=== PATIENT | male | born 1975 | race African-American/Black ===

== ENCOUNTER 2016-06-07 23:29 | Emergency (ER) | payer OTHER ==
[~2016-06-07] VITALS: Ht 170.2 cm; Wt 81.6 kg
[~2016-06-07 23:29] MED LIST: AMLO10TA4 PO
[2016-06-07 23:37] VITALS: BP 188/114
--- NOTE | 2016-06-08 00:07 | PHYS DOC ---
Past Medical History Past Medical History: No Pertinent History, Hypertension Past Surgical History: Other Additional Past Surgical Histo: "broken jaw surgery" Alcohol Use: Occasionally Drug Use: Marijuana, Phencyclidine Adult General Chief Complaint Chief Complaint: ALCOHOL INTOXICATION HPI HPI Patient is a 41 year old gentleman who presents to the ER today by EMS and police secondary to being found wandering around the street intoxicated. Patient denies any other past medical history. Patient has any history of hypertension diabetes liver longer kidney problems. Patient reports that he does not smoke but he does drink and denies any drug use. Patient has any nausea vomiting diarrhea chest pain short of breath abdominal pain. Patient denies any suicidal or homicidal ideation. Patient denies any cough cold runny nose. Patient has a dysuria frequency or urgency. Patient reports she's got no complaints. Patient reports he was drinking a significant amount of alcohol tonight and was walking around the streets when he was picked up by police. Patient is currently requesting to go home. Patient does not feel like he needs to be in the emergency department at this time. Patient's physical exam was significant for positive alcohol on breath. Patient is alert awake and oriented 3. Patient's cranial nerves were all intact. Patient is a completely nonfocal neurological exam at this time. Patient's heart lungs abdominal exams were all within normal limits. A/P: #1 alcohol intoxication. Patient's clinically and hemodynamically stable without any evidence of significant toxicity from alcohol. Patient is alert awake and oriented 3. I have discussed with the patient that he can get a ride home that we would allow him to be discharged from the ER safely. Patient has called his aunt who was on her way to pick him up. There is currently no indication for IV labs. Review of Systems Review of Systems Constitutional: Denies fever or chills [] Eyes: Denies change in visual acuity, redness, or eye pain [] HENT: Denies nasal congestion or sore throat [] Respiratory: Denies cough or shortness of breath [] Cardiovascular: No additional information not addressed in HPI [] GI: Denies abdominal pain, nausea, vomiting, bloody stools or diarrhea [] : Denies dysuria or hematuria [] Musculoskeletal: Denies back pain or joint pain [] Integument: Denies rash or skin lesions [] Neurologic: Denies headache, focal weakness or sensory changes [] Endocrine: Denies polyuria or polydipsia [] Allergies Allergies Allergies Coded Allergies Type Severity Reaction Last Updated Verified No Known Drug Allergies 04/03/13 No Physical Exam Physical Exam Constitutional: Well developed, well nourished, no acute distress, non-toxic appearance. [] HENT: Normocephalic, atraumatic, bilateral external ears normal, oropharynx moist, no oral exudates, nose normal. [] Eyes: PERRLA, EOMI, conjunctiva normal, no discharge. [] Neck: Normal range of motion, no tenderness, supple, no stridor. [] Cardiovascular:Heart rate regular rhythm, no murmur [] Lungs & Thorax: Bilateral breath sounds clear to auscultation [] Abdomen: Bowel sounds normal, soft, no tenderness, no masses, no pulsatile masses. [] Skin: Warm, dry, no erythema, no rash. [] Back: No tenderness, no CVA tenderness. [] Extremities: No tenderness, no cyanosis, no clubbing, ROM intact, no edema. [] Neurologic: Alert and oriented X 3, normal motor function, normal sensory function, no focal deficits noted. [] Psychologic: Affect normal, judgement normal, mood normal. [] Current Patient Data Vital Signs Vital Signs Date Time Temp Pulse Resp B/P Pulse Ox O2 Delivery O2 Flow Rate FiO2 06/07/16 23:37 98.6 113 20 188/114 98 Room Air 98.6 EKG EKG [] Radiology/Procedures Radiology/Procedures [] Impressions: Patient's clinically hemodynamically stable for discharged home. After notifying the patient's aunt to assist with taking him home the police who have brought him here reports that he had multiple warrants and they have informed us that he will be discharged present. Course & Med Decision Making Course & Med Decision Making Pertinent Labs and Imaging studies reviewed. (See chart for details) [] See above. Dragon Disclaimer Dragon Disclaimer This electronic medical record was generated, in whole or in part, using a voice recognition dictation system. Departure Departure Impression: Primary Impression: Alcohol intoxication Disposition: 01 HOME, SELF-CARE Condition: IMPROVED Referrals: ESTER MAHARAJ MD (PCP) Patient Instructions: Alcohol Intoxication CATHI FIELDS MD Jun 08, 2016 00:07
== END 2016-06-08 00:19 | disposition home or self-care (01) ==
LOC: EEVIPCON 23:29 → ER 23:29
DX: F10.129 Alcohol abuse with intoxication, unspecified (principal); I10 Essential (primary) hypertension; F12.10 Cannabis abuse, uncomplicated; F16.10 Hallucinogen abuse, uncomplicated; E11.9 Type 2 diabetes mellitus without complications
CPT/HCPCS: 99283

== ENCOUNTER 2016-08-19 18:03 | Emergency (ER) | payer SELFPAY ==
[~2016-08-19] VITALS: Ht 170.2 cm; Wt 81.6 kg
[2016-08-19 18:03] VITALS: BP 214/115
== END 2016-08-19 18:31 | disposition left against medical advice (07) ==
LOC: ER 18:03
DX: F19.10 Other psychoactive substance abuse, uncomplicated (principal); F12.10 Cannabis abuse, uncomplicated; F16.10 Hallucinogen abuse, uncomplicated; F17.200 Nicotine dependence, unspecified, uncomplicated; Z53.21 Procedure and treatment not carried out due to patient leaving prior to being seen by health care provider

== ENCOUNTER 2016-12-22 20:47 | Emergency (ER) | payer SELFPAY ==
--- NOTE | 2016-12-22 21:45 | PHYS DOC ---
Past Medical History Past Medical History: Hypertension Past Surgical History: Other Additional Past Surgical Histo: "broken jaw surgery" Alcohol Use: Occasionally Drug Use: Marijuana, Phencyclidine Adult General Chief Complaint Chief Complaint: ALTERED MENTAL STATUS HPI HPI Patient is a 41 year old male who presents with 2 hour [employer] of using smoking PCP and having a bad trip; found wandering the streets, brought in by EMS after someone called the police. pt now calm and cooperative. denies ALLEN, CP, SOB. hx HTN but noncompliant w meds.[] Review of Systems Review of Systems Constitutional: Denies fever or chills [] Eyes: Denies change in visual acuity, redness, or eye pain [] HENT: Denies nasal congestion or sore throat [] Respiratory: Denies cough or shortness of breath [] Cardiovascular: No additional information not addressed in HPI [] GI: Denies abdominal pain, nausea, vomiting, bloody stools or diarrhea [] : Denies dysuria or hematuria [] Musculoskeletal: Denies back pain or joint pain [] Integument: Denies rash or skin lesions [] Neurologic: Denies headache, focal weakness or sensory changes [] Endocrine: Denies polyuria or polydipsia [] Current Medications Current Medications Current Medications Medications (Trade) Dose Ordered Sig/Nick Start Time Stop Time Status Last Admin Dose Admin Lorazepam (Ativan) 1 mg 1X ONCE 12/22/16 22:00 12/22/16 22:01 DC 12/22/16 22:14 1 MG Sodium Chloride 500 ml @ 500 mls/hr 1X ONCE 12/22/16 22:00 12/22/16 22:59 12/22/16 21:51 500 MLS/HR Allergies Allergies Allergies Coded Allergies Type Severity Reaction Last Updated Verified No Known Drug Allergies 04/03/13 No Physical Exam Physical Exam Constitutional: Well developed, well nourished, no acute distress, non-toxic appearance. [] HENT: Normocephalic, atraumatic, bilateral external ears normal, oropharynx moist, no oral exudates, nose normal. [] Eyes: PERRLA, EOMI, conjunctiva normal, no discharge. [] Neck: Normal range of motion, no tenderness, supple, no stridor. [] Cardiovascular:Heart rate tachy, reg rhythm, no murmur [] Lungs & Thorax: Bilateral breath sounds clear to auscultation [] Abdomen: Bowel sounds normal, soft, no tenderness, no masses, no pulsatile masses. [] Skin: Warm, dry, no erythema, no rash. [] Back: No tenderness, no CVA tenderness. [] Extremities: No tenderness, no cyanosis, no clubbing, ROM intact, no edema. superficial abrasion top of left shoulder no bony tenderness[] Neurologic: Alert and oriented X 3, normal motor function, normal sensory function, no focal deficits noted. [] Psychologic: Affect normal, judgement normal, mood normal. [] Current Patient Data Vital Signs Vital Signs Date Time Temp Pulse Resp B/P (MAP) Pulse Ox O2 Delivery O2 Flow Rate FiO2 12/22/16 20:47 98.6 104 20 196/117 (143) 99 Room Air 98.6 Lab Values Laboratory Tests Test 12/22/16 21:25 Glucose (Fingerstick) 132 mg/dL (70-99) H EKG EKG EKG sinus tach, rate 111 , no STEMI, qtc nml; my interp.[] Radiology/Procedures Radiology/Procedures [] Course & Med Decision Making Course & Med Decision Making Pertinent Labs and Imaging studies reviewed. (See chart for details) 2237: pt calm cooperative. able to ambulate without difficulty. pt refused ativan, fluids, or BP meds (understands risk of stroke and other problems related to poorly controlled HTN). pt understands need to stop drug use and follow up for HTN management. [] Dragon Disclaimer Dragon Disclaimer This electronic medical record was generated, in whole or in part, using a voice recognition dictation system. Departure Departure Impression: Primary Impression: PCP intoxication Additional Impression: Hypertension Disposition: HOME, SELF-CARE Condition: STABLE Referrals: Lydia MAHARAJ MD (PCP) Problem Qualifiers KEN REYNOSO MD Dec 22, 2016 21:45
[2016-12-22] MEDS ORDERED: IV NORMAL SALINE 500ML BAG 500 ML IV ONE (22:00)
[2016-12-22 22:35] VITALS: BP 191/110
--- NOTE | 2016-12-23 07:44 | EKG ---
[facility] [address] [place] [address] Test Date: 2016-12-22 Test Time: 20:55:19 Pat Name: LIYAH CASTRO Department: Room: Gender: M Quantitative Developer: : 1975 Requested By: KEN REYNOSO Order Number: [id number] Reading MD: Lucrecia Hope Measurements Intervals [place] Rate: 111 P: 41 TN: 146 QRS: 0 QRSD: 86 T: 1 QT: 320 QTc: 438 Interpretive Statements SINUS TACHYCARDIA LEFT ATRIAL ABNORMALITY LEFTWARD AXIS ABNORMAL ECG Electronically Signed On 12-25-2016 15:15:53 CDT by Lucrecia Hope
== END 2016-12-22 22:55 | disposition home or self-care (01) ==
LOC: ER 20:47
DX: F16.129 Hallucinogen abuse with intoxication, unspecified (principal); I10 Essential (primary) hypertension
CPT/HCPCS: 82962; 93005; 96361; 96374; 99285; J2060; J7040

== ENCOUNTER 2017-09-29 22:50 | Inpatient (IN) | payer SELFPAY ==
[2017-09-29 23:23] LABS: ADD MAN DIFF? NO
[2017-09-29] MEDS: IV NORMAL SALINE 1000ML BAG 1,000 ML IV (23:30)
[2017-09-29 23:34] LABS: BASO # 0.1 x10^3/uL (0.0-0.2); BASO % 1 % (0-3); EOS # 0.3 x10^3/uL (0.0-0.7); EOS % 4 % (0-3); HEMATOCRIT 48.9 % (39.0-53.0); HEMOGLOBIN 16.6 g/dL (13.0-17.5); LYMPH # 2.9 x10^3/uL (1.0-4.8); LYMPH % 37 % (24-48); MEAN CORPUSCULAR HEMOGLOBIN 31 pg (25-35); MEAN CORPUSCULAR HGB CONC 34 g/dL (31-37); MEAN CORPUSCULAR VOLUME 91 fL (79-100); MONO # 0.6 x10^3/uL (0.0-1.1); MONO % 8 % (0-9); NEUT # 3.8 x10^3uL (1.8-7.7); NEUT % 50 % (31-73); PLATELET COUNT 346 x10^3/uL (140-400); RED BLOOD COUNT 5.37 x10^6/uL (4.30-5.70); RED CELL DISTRIBUTION WIDTH 13.2 % (11.5-14.5); WHITE BLOOD COUNT 7.7 x10^3/uL (4.0-11.0)
[2017-09-29 23:35] LABS: PROTHROMBIN TIME PATIENT 12.7 SEC (11.7-14.0)
[2017-09-29 23:36] LABS: MAGNESIUM 2.4 mg/dL (1.8-2.4)
[2017-09-29 23:38] LABS: ANION GAP 21 (6-14); BLOOD UREA NITROGEN 20 mg/dL (8-26); BUN/CREATININE RATIO 10 (6-20); CALCIUM 10.2 mg/dL (8.5-10.1); CARBON DIOXIDE 20 mmol/L (21-32); CHLORIDE 102 mmol/L (98-107); GLUCOSE 203 mg/dL (70-99); POTASSIUM 3.9 mmol/L (3.5-5.1); SODIUM 143 mmol/L (136-145)
[2017-09-29 23:41] LABS: ACETAMIN < 2 mcg/ml (10-30); ETHANOL < 10 mg/dL (0-10); SALIC 4.7 mg/dL (2.8-20.0)
[2017-09-29 23:44] LABS: TROPONINI < 0.017 ng/mL (0.000-0.055)
[2017-09-29 23:44] LABS: ALBUMIN 4.7 g/dL (3.4-5.0); ALBUMIN/GLOBULIN RATIO 1.1 (1.0-1.7); ALK PHOS 91 U/L (46-116); ALT (SGPT) 42 U/L (16-63); AST (SGOT) 34 U/L (15-37); TOTAL BILIRUBIN 0.4 mg/dL (0.2-1.0); TOTAL PROTEIN 8.8 g/dL (6.4-8.2)
[2017-09-29 23:53] LABS: CKMB INDEX 0.9 % (0-4); CKMB MASS 3.1 ng/mL (0.0-3.6); CREATINE KINASE 341 U/L (39-308)
[2017-09-30 00:04] LABS: BILIRUBIN,URINE NEGATIVE (NEG); CLARITY,URINE CLEAR; COLOR,URINE YELLOW; GLUCOSE,URINE NEGATIVE (NEG); NITRITE,URINE NEGATIVE (NEG); PH,URINE 5.5; PROTEIN,URINE 30 mg/dL (NEG-TRACE)
[2017-09-30 00:13] LABS: LACTIC ACID 12.1 mmol/L (0.4-2.0)
[2017-09-30 00:14] LABS: BACTERIA,URINE 0 /HPF (0-FEW); HYALINE CASTS, URINE FEW /HPF; SQUAMOUS EPITHELIAL CELL,UR OCC /LPF
[2017-09-30 00:20] LABS: BARBITURATES NEG (NEG); BENZODIAZEPINES NEG (NEG); CANNABINOIDS NEG (NEG); COCAINE NEG (NEG); METHADONE NEG (NEG); OPIATES NEG (NEG); PHENCYCLIDINE POS (NEG)
[2017-09-30 00:21] LABS: AMPHETAMINE/METHAMPHETAMINE NEG (NEG); ETHANOL, URINE NEG (NEG)
[2017-09-30] MEDS: IV NORMAL SALINE 1000ML BAG 1,000 ML IV ×2 (00:28→01:25)
[2017-09-30] MEDS ORDERED: ONDANSETRON PF 4 MG/2 ML VIAL. IV (00:45)
== END 2017-09-30 05:05 | disposition left against medical advice (07) | DRG 897 ==
LOC: ER 09-30 04:02 → 6 SOUTH 09-30 02:30 → ER 22:50
DX: F16.920 Hallucinogen use, unspecified with intoxication, uncomplicated (principal); E87.2 Acidosis; H55.00 Unspecified nystagmus; N18.9 Chronic kidney disease, unspecified; F17.210 Nicotine dependence, cigarettes, uncomplicated; F12.90 Cannabis use, unspecified, uncomplicated; Z53.21 Procedure and treatment not carried out due to patient leaving prior to being seen by health care provider; I12.9 Hypertensive chronic kidney disease with stage 1 through stage 4 chronic kidney disease, or unspecified chronic kidney disease
CPT/HCPCS: 36415; 70450; 71045; 80053; 80307; 80329; 81001; 82553; 83605; 83735; 84484; 85025; 85610; 93005; 96361; 96374; 99285; 99285-25; G0480; G6039; J2060; J7030

== ENCOUNTER 2018-04-18 20:43 | Emergency (ER) | payer SELFPAY ==
[~2018-04-18] VITALS: Ht 170.2 cm; Wt 72.6 kg
[2018-04-18 22:30] VITALS: BP 199/114
--- NOTE | 2018-04-19 04:51 | PHYS DOC ---
Past Medical History Past Medical History: Hypertension, Other Additional Past Medical Histor: DRUG ABUSE/PCP Past Surgical History: Other Additional Past Surgical Histo: "broken jaw surgery" Alcohol Use: Occasionally Drug Use: Marijuana, Phencyclidine Adult General Chief Complaint Chief Complaint: DRUG ABUSE HPI HPI Patient is a 43 year old male presents the emergency room brought in by ambulance after being found walking around in the snow in the [facility] [place] He appeared to have some altered mental status he did admit to smoking a "wet" cigarette which his PCP Review of Systems Review of Systems limited by altered mental status. Current Medications Current Medications Current Medications Medications (Trade) Dose Ordered Sig/Nick Start Time Stop Time Status Last Admin Dose Admin Lorazepam (Ativan) 1 mg 1X ONCE 04/18/18 21:30 04/18/18 21:31 DC 04/18/18 21:05 1 MG Allergies Allergies Allergies Coded Allergies Type Severity Reaction Last Updated Verified No Known Drug Allergies 04/03/13 No Physical Exam Physical Exam Constitutional: Well developed, well nourished, mild distress, non-toxic appearance. [] HENT: Normocephalic, atraumatic, bilateral external ears normal, oropharynx moist, no oral exudates, nose normal. [] Eyes: pupils dilated EOMI, conjunctiva normal, no discharge. [] Neck: Normal range of motion, no tenderness, supple, no stridor. [] Cardiovascular:Heart rate regular rhythm, no murmur [] Lungs & Thorax: Bilateral breath sounds clear to auscultation [] Abdomen: Bowel sounds normal, soft, no tenderness, no masses, no pulsatile masses. [] Skin: Warm, dry, no erythema, no rash. [] Back: No tenderness, no CVA tenderness. [] Extremities: No tenderness, no cyanosis, no clubbing, ROM intact, no edema. [] Neurologic: Alert and oriented X 2, normal motor function, normal sensory function, no focal deficits noted. [] Psychologic: Affect normal, judgement normal, mood normal. [] Current Patient Data Vital Signs Vital Signs Date Time Temp Pulse Resp B/P (MAP) Pulse Ox O2 Delivery O2 Flow Rate FiO2 04/18/18 22:30 89 18 199/114 (142) 99 Room Air 04/18/18 20:43 98.0 98.0 EKG EKG [] Radiology/Procedures Radiology/Procedures [] Course & Med Decision Making Course & Med Decision Making Pertinent Labs and Imaging studies reviewed. (See chart for details) 43 yo m p/w ams likely secondry to pcp use. pt is calm overall in the er, mild agitation but redirectable verbally. given ativan with improvement. walks with steady gait after epriod of observation in the er bp likely related to stimulant use pt given cab voucher and was able to report a specific address at discharge. counseled on cessation of drug use.[] Dragon Disclaimer Dragon Disclaimer This electronic medical record was generated, in whole or in part, using a voice recognition dictation system. Departure Departure Impression: Primary Impression: Drug abuse Disposition: HOME, SELF-CARE Condition: STABLE Patient Instructions: Drug Abuse, FAQs CARIDAD GREENE MD Apr 19, 2018 04:51
== END 2018-04-18 22:25 | disposition home or self-care (01) ==
LOC: ER 20:43
DX: F16.20 Hallucinogen dependence, uncomplicated (principal); I10 Essential (primary) hypertension; R41.82 Altered mental status, unspecified
CPT/HCPCS: 96372; 99283; J2060

== ENCOUNTER 2018-04-21 20:15 | Observation (INO) | payer SELFPAY ==
[~2018-04-21] VITALS: Ht 170.2 cm; Wt 68.0 kg
[2018-04-21] MEDS ORDERED: HALOPERIDOL LACTATE 5 MG/ML VIAL. ONE (20:22)
[2018-04-21] MEDS ORDERED: ZIPRASIDONE IM 20 MG VIAL. IM ONE (20:33)
[2018-04-21 21:13] LABS: BASO % 1 % (0-3); EOS # 0.2 x10^3/uL (0.0-0.7); EOS % 4 % (0-3); HEMOGLOBIN 14.1 g/dL (13.0-17.5); LYMPH # 1.2 x10^3/uL (1.0-4.8); LYMPH % 26 % (24-48); MEAN CORPUSCULAR HEMOGLOBIN 30 pg (25-35); MEAN CORPUSCULAR HGB CONC 33 g/dL (31-37); MEAN CORPUSCULAR VOLUME 91 fL (79-100); MONO # 0.2 x10^3/uL (0.0-1.1); MONO % 5 % (0-9); NEUT % 64 % (31-73); PLATELET COUNT 294 x10^3/uL (140-400); RED BLOOD COUNT 4.64 x10^6/uL (4.30-5.70); RED CELL DISTRIBUTION WIDTH 12.6 % (11.5-14.5); WHITE BLOOD COUNT 4.7 x10^3/uL (4.0-11.0)
[2018-04-21 21:19] LABS: PROTHROMBIN TIME PATIENT 12.9 SEC (11.7-14.0)
[2018-04-21 21:23] LABS: CALCIUM 9.4 mg/dL (8.5-10.1); CREATININE 1.1 mg/dL (0.7-1.3); GFR 89.3; POTASSIUM 3.6 mmol/L (3.5-5.1)
[2018-04-21 21:24] LABS: BILIRUBIN,URINE NEGATIVE (NEG); CLARITY,URINE CLEAR; COLOR,URINE YELLOW; NITRITE,URINE NEGATIVE (NEG); PROTEIN,URINE 30 mg/dL (NEG-TRACE)
[2018-04-21 21:29] LABS: ALBUMIN 3.8 g/dL (3.4-5.0); DIRECT BILIRUBIN 0.1 mg/dL (0.0-0.2); MAGNESIUM 1.9 mg/dL (1.8-2.4); TOTAL BILIRUBIN 0.3 mg/dL (0.2-1.0); TOTAL PROTEIN 7.3 g/dL (6.4-8.2)
[2018-04-21 21:30] LABS: AMPHETAMINE/METHAMPHETAMINE NEG (NEG); BARBITURATES NEG (NEG); BENZODIAZEPINES NEG (NEG); CANNABINOIDS NEG (NEG); COCAINE NEG (NEG); METHADONE NEG (NEG); OPIATES NEG (NEG); PHENCYCLIDINE POS (NEG)
[2018-04-21 21:36] LABS: BACTERIA,URINE 0 /HPF (0-FEW); RBC,URINE OCC /HPF (0-2); SQUAMOUS EPITHELIAL CELL,UR FEW /LPF; WBC,URINE RARE /HPF (0-4)
[2018-04-21 21:37] LABS: HYALINE CASTS, URINE FEW /HPF
--- NOTE | 2018-04-21 23:24 | PHYS DOC ---
Past Medical History Past Medical History: Hypertension, Other Additional Past Medical Histor: DRUG ABUSE/PCP Past Surgical History: Other Additional Past Surgical Histo: "broken jaw surgery" Alcohol Use: Occasionally Drug Use: Marijuana, Phencyclidine Adult General Chief Complaint Chief Complaint: DRUG ABUSE HPI HPI Patient is a 43-year-old male who presents via EMS with reports of PCP intoxication. Patient was wandering the streets confused and reportedly had used wet. Additional history is limited as patient is clearly confused, intoxicated and unable to provide history. Review of Systems Review of Systems Constitutional: No reported fever[] Respiratory: No reported shortness of breath [] Cardiovascular: No additional information not addressed in HPI [] GI: No reported vomiting[] Neurologic: Positive confusion[] Unable to fully assess review of systems due to patient's mental state/ intoxication. Current Medications Current Medications Current Medications Medications (Trade) Dose Ordered Sig/Nick Start Time Stop Time Status Last Admin Dose Admin Haloperidol Lactate (Haldol Inj) 5 mg STK-MED ONCE 04/21/18 20:22 04/21/18 20:23 DC Lorazepam (Ativan) 2 mg STK-MED ONCE 04/21/18 20:22 04/21/18 20:23 DC Ziprasidone (Geodon Im) 20 mg STK-MED ONCE 04/21/18 20:33 04/21/18 20:34 DC Allergies Allergies Allergies Coded Allergies Type Severity Reaction Last Updated Verified No Known Drug Allergies 04/03/13 No Physical Exam Physical Exam Constitutional: Well developed, well nourished, obviously intoxicated. [] HENT: Normocephalic, atraumatic, bilateral external ears normal, oropharynx moist, no oral exudates, nose normal. [] Eyes: PERRLA, EOMI, conjunctiva normal, no discharge. [] Neck: Normal range of motion, no tenderness, supple, no stridor. [] Cardiovascular: Regular rate and rhythm[] Lungs & Thorax: Bilateral breath sounds clear to auscultation [] Abdomen: Bowel sounds normal, soft, no tenderness. [] Skin: Warm, dry, no erythema, no rash. [] Extremities: No tenderness, no cyanosis, no clubbing, ROM intact, no edema. [] Neurologic: Awake and alert, disoriented 3, no focal deficits noted. [] Current Patient Data Vital Signs Vital Signs Date Time Temp Pulse Resp B/P (MAP) Pulse Ox O2 Delivery O2 Flow Rate FiO2 04/21/18 20:15 98.1 126 20 148/84 (105) 98 Room Air 98.1 Lab Values Laboratory Tests Test 04/21/18 21:04 04/21/18 21:15 White Blood Count 4.7 x10^3/uL (4.0-11.0) Red Blood Count 4.64 x10^6/uL (4.30-5.70) Hemoglobin 14.1 g/dL (13.0-17.5) Hematocrit 42.0 % (39.0-53.0) Mean Corpuscular Volume 91 fL (79-100) Mean Corpuscular Hemoglobin 30 pg (25-35) Mean Corpuscular Hemoglobin Concent 33 g/dL (31-37) Red Cell Distribution Width 12.6 % (11.5-14.5) Platelet Count 294 x10^3/uL (140-400) Neutrophils (%) (Auto) 64 % (31-73) Lymphocytes (%) (Auto) 26 % (24-48) Monocytes (%) (Auto) 5 % (0-9) Eosinophils (%) (Auto) 4 % (0-3) H Basophils (%) (Auto) 1 % (0-3) Neutrophils # (Auto) 3.0 x10^3uL (1.8-7.7) Lymphocytes # (Auto) 1.2 x10^3/uL (1.0-4.8) Monocytes # (Auto) 0.2 x10^3/uL (0.0-1.1) Eosinophils # (Auto) 0.2 x10^3/uL (0.0-0.7) Basophils # (Auto) 0.0 x10^3/uL (0.0-0.2) Prothrombin Time 12.9 SEC (11.7-14.0) Prothrombin Time INR 1.0 (0.8-1.1) Sodium Level 144 mmol/L (136-145) Potassium Level 3.6 mmol/L (3.5-5.1) Chloride Level 104 mmol/L (98-107) Carbon Dioxide Level 25 mmol/L (21-32) Anion Gap 15 (6-14) H Blood Urea Nitrogen 10 mg/dL (8-26) Creatinine 1.1 mg/dL (0.7-1.3) Estimated GFR (Cockcroft-Gault) 89.3 Glucose Level 138 mg/dL (70-99) H Calcium Level 9.4 mg/dL (8.5-10.1) Magnesium Level 1.9 mg/dL (1.8-2.4) Total Bilirubin 0.3 mg/dL (0.2-1.0) Direct Bilirubin 0.1 mg/dL (0.0-0.2) Aspartate Amino Transferase (AST) 31 U/L (15-37) Alanine Aminotransferase (ALT) 38 U/L (16-63) Alkaline Phosphatase 87 U/L (46-116) Total Protein 7.3 g/dL (6.4-8.2) Albumin 3.8 g/dL (3.4-5.0) Ethyl Alcohol Level < 10 mg/dL (0-10) Urine Collection Type U cath Urine Color Yellow Urine Clarity Clear Urine pH 6.0 Urine Specific [place] 1.025 Urine Protein 30 mg/dL (NEG-TRACE) Urine Glucose (UA) Negative mg/dL (NEG) Urine Ketones (Stick) Negative mg/dL (NEG) Urine Blood Negative (NEG) Urine Nitrite Negative (NEG) Urine Bilirubin Negative (NEG) Urine Urobilinogen Dipstick 1.0 mg/dL (0.2 mg/dL) Urine Leukocyte Esterase Negative (NEG) Urine RBC Occ /HPF (0-2) Urine WBC Rare /HPF (0-4) Urine Squamous Epithelial Cells Few /LPF Urine Transitional Epithelial Cells Occ /LPF Urine Bacteria 0 /HPF (0-FEW) Urine Hyaline Casts Few /HPF Urine Mucus Marked /LPF Urine Opiates Screen Neg (NEG) Urine Methadone Screen Neg (NEG) Urine Barbiturates Neg (NEG) Urine Phencyclidine Screen Pos (NEG) Urine Amphetamine/Methamphetamine Neg (NEG) Urine Benzodiazepines Screen Neg (NEG) Urine Cocaine Screen Neg (NEG) Urine Cannabinoids Screen Neg (NEG) Urine Ethyl Alcohol Neg (NEG) Laboratory Tests 04/21/18 21:04 Laboratory Tests 04/21/18 21:04 EKG EKG [] Radiology/Procedures Radiology/Procedures [] Course & Med Decision Making Course & Med Decision Making Pertinent Labs and Imaging studies reviewed. (See chart for details) [] Dragon Disclaimer Dragon Disclaimer This electronic medical record was generated, in whole or in part, using a voice recognition dictation system. Departure Departure Impression: Primary Impression: PCP intoxication Disposition: 09 ADMITTED INPATIENT Admitting Physician: Other (Dr. Galarza) Condition: GOOD Referrals: NO PCP (PCP) Problem Qualifiers Primary Impression: PCP intoxication Complication of substance-induced condition: with unspecified complication Qualified Codes: F16.929 - Hallucinogen use, unspecified with intoxication, unspecified BILLY VÁZQUEZ Jr. DO Apr 21, 2018 23:24
[2018-04-22] MEDS ORDERED: ONDANSETRON PF 4 MG/2 ML VIAL. IV PRN (01:15)
[2018-04-22] MEDS ORDERED: IV NORMAL SALINE 1000ML BAG 1,000 ML IV SCH (01:15)
[2018-04-22 02:50] VITALS: BP 179/103
[2018-04-22] MEDS ORDERED: IV NORMAL SALINE 1000ML BAG 1,000 ML IV ONE (03:00)
[2018-04-22] MEDS ORDERED: ZIPRASIDONE IM 20 MG VIAL. IM ONE (03:00)
[2018-04-22] MEDS ORDERED: HALOPERIDOL LACTATE 5 MG/ML VIAL. IM ONE (03:00)
--- NOTE | 2018-04-22 03:14 | NUR ---
Patient admission Pt arrived to the unit at approximately 0215 via gurney from the ED. Pt continue to be restless, the more questions RN asked him, the more agitated he got. Pt stated that he needs to go home and go to work. Ativan 1 mg was given. Pt refused to have IV maintenance fluid going, so RN saline lock pt at this time. Pt also refused to sign fall contract. Patient information guide was explained and given to pt. Pt will answered to some admission questions and not on some. Pt made comfortable in bed. Will continue to monitor pt closely.
--- NOTE | 2018-04-22 07:16 | NUR ---
AMA Discharge: Pt states he needs to leave now because he has to be at work by 0830 hours this morning. AMA explained to pt. and verbalized understanding. Pt is A+O x3. Denies AVH, SI, HI. Denies pain. Peripheral IV removed. Security on the unit to escort pt out.
== END 2018-04-22 07:30 | disposition left against medical advice (07) ==
LOC: ER 20:15 → 5 NORTH 04-22 01:02
PROVIDERS: ADMIT Internal Medicine; ATTEND Internal Medicine
DX: F16.129 Hallucinogen abuse with intoxication, unspecified (principal); I10 Essential (primary) hypertension
CPT/HCPCS: 36415; 80048; 80076; 80307; 81001; 83735; 85025; 85610; 96372; 96374; 99284; G0378; G0480; J1630; J2060; J3486; J7030; G0379

== ENCOUNTER 2018-04-23 22:27 | Emergency (ER) | payer SELFPAY ==
[~2018-04-23] VITALS: Ht 170.2 cm; Wt 68.0 kg
[2018-04-23] MEDS ORDERED: MIDAZOLAM HCL/PF 5 MG/5 ML VIAL. IM ONE (22:45)
[2018-04-24] MEDS ORDERED: cloNIDine HCL 0.1 MG TABLET PO ONE
[2018-04-24 00:14] VITALS: BP 189/97
--- NOTE | 2018-04-24 00:14 | PHYS DOC ---
Past Medical History Past Medical History: Hypertension, Other Additional Past Medical Histor: DRUG ABUSE/PCP Past Surgical History: Other Additional Past Surgical Histo: "broken jaw surgery" Alcohol Use: Occasionally Drug Use: Marijuana, Phencyclidine Adult General Chief Complaint Chief Complaint: DRUG ABUSE HPI HPI Patient is a 43 year old [male who is presenting with brought in by ambulance after drug abuse. Apparently he was smoking wet, per record librarian report he was crawling in the street. He was compliant they did put him in restraints briefly just in case but he actually was never combative with them specifically. Currently patient can tell me the year location he knows his address she wants to leave. He is having no symptoms Review of Systems Review of Systems Constitutional: Denies fever or chills [] Eyes: Denies change in visual acuity, redness, or eye pain [] HENT: Denies nasal congestion or sore throat [] Respiratory: Denies cough or shortness of breath [] Cardiovascular: No additional information not addressed in HPI [] denies any pain Neurologic: Denies headache, focal weakness or sensory changes [] Endocrine: Denies polyuria or polydipsia [] All other systems were reviewed and found to be within normal limits, except as documented in this note. Current Medications Current Medications Current Medications Medications (Trade) Dose Ordered Sig/Nick Start Time Stop Time Status Last Admin Dose Admin Clonidine HCl (Catapres) 0.2 mg 1X ONCE 04/24/18 00:00 04/24/18 00:01 DC 04/23/18 23:56 0.2 MG Midazolam HCl (Versed) 4 mg 1X ONCE 04/23/18 22:45 04/23/18 22:47 DC 04/23/18 22:45 4 MG Allergies Allergies Allergies Coded Allergies Type Severity Reaction Last Updated Verified No Known Drug Allergies 04/03/13 No Physical Exam Physical Exam Constitutional: Well developed, well nourished mildly anxiety HENT: Normocephalic, atraumatic, bilateral external ears normal, oropharynx moist, no oral exudates, nose normal. [] Eyes: PERRLA, EOMI, conjunctiva normal, no discharge. [] Neck: Normal range of motion, no tenderness, supple, no stridor. [] Abdomen: Bowel sounds normal, soft, no tenderness, no masses, no pulsatile masses. Pulmonary: Normal respiratory effort no increased work of breathing no obvious chest wall trauma Skin: Warm, dry, no erythema, no rash. [] Back: No tenderness, no CVA tenderness. [] Extremities: No tenderness, no cyanosis, no clubbing, ROM intact, no edema. [] Neurologic: Alert and oriented X 3, normal motor function, normal sensory function, no focal deficits noted. [] Psychologic: A patient has mild paranoid however he denies any suicidal ideation and he is speaking clearly, he does carry on a 10 minute conversation calmly and fairly appropriately with a member of the staff that he knows privately. Current Patient Data Vital Signs Vital Signs Date Time Temp Pulse Resp B/P (MAP) Pulse Ox O2 Delivery O2 Flow Rate FiO2 04/24/18 00:14 189/97 (127) 04/23/18 23:56 103 04/23/18 23:49 16 98 Room Air 04/23/18 22:30 98.1 98.1 EKG EKG [] Radiology/Procedures Radiology/Procedures [] Course & Med Decision Making Course & Med Decision Making Pertinent Labs and Imaging studies reviewed. (See chart for details) []pcp use, versed given Patient remained calm and cooperative in the ER for 2 hours. Blood pressure was elevated and she really did not go down for sets we gave clonidine and rechecked it and it came down some. d/c in cab He was advised to follow-up for recheck of blood pressure within 1 week [place] Disclaimer Dragon Disclaimer This electronic medical record was generated, in whole or in part, using a voice recognition dictation system. Departure Departure Impression: Primary Impression: Drug abuse Additional Impression: Elevated blood pressure reading Disposition: HOME, SELF-CARE Condition: STABLE Referrals: NO PCP (PCP) Patient Instructions: Drug Abuse, FAQs Problem Qualifiers CARIDAD GREENE MD Apr 24, 2018 00:14
== END 2018-04-24 00:20 | disposition home or self-care (01) ==
LOC: ER 22:27
DX: F16.20 Hallucinogen dependence, uncomplicated (principal); I10 Essential (primary) hypertension; F60.0 Paranoid personality disorder
CPT/HCPCS: 96372; 99283; J2250

== ENCOUNTER 2018-05-03 21:17 | Emergency (ER) | payer SELFPAY ==
[~2018-05-03] VITALS: Ht 170.2 cm; Wt 68.0 kg
[2018-05-03 21:42] LABS: BASO # 0.1 x10^3/uL (0.0-0.2); BASO % 1 % (0-3); EOS # 0.2 x10^3/uL (0.0-0.7); EOS % 2 % (0-3); HEMATOCRIT 46.6 % (39.0-53.0); HEMOGLOBIN 15.4 g/dL (13.0-17.5); LYMPH % 30 % (24-48); MEAN CORPUSCULAR HEMOGLOBIN 30 pg (25-35); MEAN CORPUSCULAR HGB CONC 33 g/dL (31-37); MEAN CORPUSCULAR VOLUME 91 fL (79-100); MONO # 0.5 x10^3/uL (0.0-1.1); MONO % 8 % (0-9); NEUT % 59 % (31-73); PLATELET COUNT 322 x10^3/uL (140-400); RED BLOOD COUNT 5.12 x10^6/uL (4.30-5.70); WHITE BLOOD COUNT 6.8 x10^3/uL (4.0-11.0)
[2018-05-03 21:52] LABS: CALCIUM 9.7 mg/dL (8.5-10.1); CREATININE 1.1 mg/dL (0.7-1.3); GFR 89.3
[2018-05-03 21:53] LABS: PROTHROMBIN TIME PATIENT 12.8 SEC (11.7-14.0)
[2018-05-03 21:58] LABS: ALBUMIN 4.1 g/dL (3.4-5.0); ALBUMIN/GLOBULIN RATIO 0.9 (1.0-1.7); MAGNESIUM 2.2 mg/dL (1.8-2.4); TOTAL BILIRUBIN 0.2 mg/dL (0.2-1.0); TOTAL PROTEIN 8.5 g/dL (6.4-8.2)
[2018-05-03 22:35] LABS: BILIRUBIN,URINE NEGATIVE (NEG); CLARITY,URINE CLEAR; COLOR,URINE YELLOW; NITRITE,URINE NEGATIVE (NEG); PROTEIN,URINE NEGATIVE (NEG-TRACE)
[2018-05-03 22:45] LABS: AMPHETAMINE/METHAMPHETAMINE NEG (NEG); BARBITURATES NEG (NEG); BENZODIAZEPINES NEG (NEG); CANNABINOIDS NEG (NEG); COCAINE NEG (NEG); METHADONE NEG (NEG); OPIATES NEG (NEG); PHENCYCLIDINE POS (NEG)
[2018-05-03 22:51] LABS: BACTERIA,URINE 0 /HPF (0-FEW); RBC,URINE 0 /HPF (0-2); SQUAMOUS EPITHELIAL CELL,UR OCC /LPF
--- NOTE | 2018-05-03 22:58 | PHYS DOC ---
Past Medical History Past Medical History: Hypertension, Other Additional Past Medical Histor: DRUG ABUSE/PCP Past Medical History Limited due to altered mental status. Past Surgical History: Other Additional Past Surgical Histo: "broken jaw surgery" Past Surgical History Limited due to altered mental status. Smoking: Cigarettes, 1 Pack Per Day Alcohol Use: Occasionally Drug Use: Marijuana, Phencyclidine Social History Limited due to altered mental status. Adult General Chief Complaint Chief Complaint: ALTERED MENTAL STATUS HPI HPI 43 y/o male presents via EMS with report of altered mental status after someone called about patient who was walking out in the street and "wanted to fight". Patient known to abuse PCP and does report recent PCP use. Denies chest pain. Denies trauma. Denies headache. Denies fever/chills. HPI limited due to altered mental status. Review of Systems Review of Systems Constitutional: Denies fever or chills [] Eyes: Denies change in visual acuity or eye pain [] HENT: Denies nasal congestion or sore throat [] Respiratory: Denies cough or shortness of breath [] Cardiovascular: Denies chest pain or palpitations GI: Denies abdominal pain, nausea, vomiting, or diarrhea [] : Denies dysuria or hematuria [] Integument: Denies rash or skin lesions [] Neurologic: Denies headache, focal weakness or sensory changes [] ROS limited due to altered mental status. Allergies Allergies Allergies Coded Allergies Type Severity Reaction Last Updated Verified No Known Drug Allergies 04/03/13 No Physical Exam Physical Exam Constitutional: Well developed, well nourished, no acute distress, non-toxic appearance, non-combative, somnolent [] HENT: Normocephalic, atraumatic, oropharynx moist Eyes: PERRL, EOMI, conjunctiva normal, nystagmus noted Neck: Normal range of motion, no tenderness, supple, no stridor. [] Cardiovascular: Heart rate regular rhythm, no murmur [] Lungs & Thorax: Bilateral breath sounds clear to auscultation [] Abdomen: Soft, no tenderness Skin: Warm, dry, no erythema, no rash. [] Back: No tenderness, no CVA tenderness. [] Extremities: No tenderness, ROM intact, no edema. [] Neurologic: Alert and oriented name and date, normal motor function, normal sensory function, no focal deficits noted. [] Psychologic: Affect flat Current Patient Data Vital Signs Vital Signs Date Time Temp Pulse Resp B/P (MAP) Pulse Ox O2 Delivery O2 Flow Rate FiO2 05/03/18 23:01 96 98 05/03/18 22:21 20 05/03/18 21:20 98.9 220/129 (159) Room Air 98.9 Lab Values Laboratory Tests Test 05/03/18 21:28 05/03/18 22:20 White Blood Count 6.8 x10^3/uL (4.0-11.0) Red Blood Count 5.12 x10^6/uL (4.30-5.70) Hemoglobin 15.4 g/dL (13.0-17.5) Hematocrit 46.6 % (39.0-53.0) Mean Corpuscular Volume 91 fL (79-100) Mean Corpuscular Hemoglobin 30 pg (25-35) Mean Corpuscular Hemoglobin Concent 33 g/dL (31-37) Red Cell Distribution Width 13.0 % (11.5-14.5) Platelet Count 322 x10^3/uL (140-400) Neutrophils (%) (Auto) 59 % (31-73) Lymphocytes (%) (Auto) 30 % (24-48) Monocytes (%) (Auto) 8 % (0-9) Eosinophils (%) (Auto) 2 % (0-3) Basophils (%) (Auto) 1 % (0-3) Neutrophils # (Auto) 4.0 x10^3uL (1.8-7.7) Lymphocytes # (Auto) 2.0 x10^3/uL (1.0-4.8) Monocytes # (Auto) 0.5 x10^3/uL (0.0-1.1) Eosinophils # (Auto) 0.2 x10^3/uL (0.0-0.7) Basophils # (Auto) 0.1 x10^3/uL (0.0-0.2) Prothrombin Time 12.8 SEC (11.7-14.0) Prothrombin Time INR 1.0 (0.8-1.1) PTT 26 SEC (24-38) Sodium Level 143 mmol/L (136-145) Potassium Level 4.0 mmol/L (3.5-5.1) Chloride Level 105 mmol/L (98-107) Carbon Dioxide Level 27 mmol/L (21-32) Anion Gap 11 (6-14) Blood Urea Nitrogen 19 mg/dL (8-26) Creatinine 1.1 mg/dL (0.7-1.3) Estimated GFR (Cockcroft-Gault) 89.3 BUN/Creatinine Ratio 17 (6-20) Glucose Level 138 mg/dL (70-99) H Calcium Level 9.7 mg/dL (8.5-10.1) Magnesium Level 2.2 mg/dL (1.8-2.4) Total Bilirubin 0.2 mg/dL (0.2-1.0) Aspartate Amino Transferase (AST) 31 U/L (15-37) Alanine Aminotransferase (ALT) 49 U/L (16-63) Alkaline Phosphatase 93 U/L (46-116) Total Protein 8.5 g/dL (6.4-8.2) H Albumin 4.1 g/dL (3.4-5.0) Albumin/Globulin Ratio 0.9 (1.0-1.7) L Ethyl Alcohol Level < 10 mg/dL (0-10) Urine Color Yellow Urine Clarity Clear Urine pH 6.0 Urine Specific [place] 1.025 Urine Protein Negative mg/dL (NEG-TRACE) Urine Glucose (UA) Negative mg/dL (NEG) Urine Ketones (Stick) Negative mg/dL (NEG) Urine Blood Negative (NEG) Urine Nitrite Negative (NEG) Urine Bilirubin Negative (NEG) Urine Urobilinogen Dipstick 1.0 mg/dL (0.2 mg/dL) Urine Leukocyte Esterase Negative (NEG) Urine RBC 0 /HPF (0-2) Urine WBC 1-4 /HPF (0-4) Urine Squamous Epithelial Cells Occ /LPF Urine Bacteria 0 /HPF (0-FEW) Urine Mucus Slight /LPF Urine Opiates Screen Neg (NEG) Urine Methadone Screen Neg (NEG) Urine Barbiturates Neg (NEG) Urine Phencyclidine Screen Pos (NEG) Urine Amphetamine/Methamphetamine Neg (NEG) Urine Benzodiazepines Screen Neg (NEG) Urine Cocaine Screen Neg (NEG) Urine Cannabinoids Screen Neg (NEG) Urine Ethyl Alcohol Neg (NEG) Laboratory Tests 05/03/18 21:28 Laboratory Tests 05/03/18 21:28 EKG EKG @2216 NSR at 82bpm, j point elevation noted to I and avL and V2-V3, slight depression noted to III with t wave inversion Radiology/Procedures Radiology/Procedures [] Course & Med Decision Making Course & Med Decision Making Pertinent Lab studies reviewed. (See chart for details) Patient with known PCP abuse presents with altered mental status and agitation with report of recent PCP use. Patient non-combative upon arrival. Labs obtained and posted to chart. UDS positive for PCP. EKG stable. Patient with interval improvement of mentation. PAT team in department an provided patient with drug abuse resources. Patient stable for discharge home with outpatient follow-up with PCP/ Drug rehab. Discussed findings and plan with patient, who acknowledges understanding and agreement. Dragon Disclaimer Dragon Disclaimer This electronic medical record was generated, in whole or in part, using a voice recognition dictation system. Departure Departure Impression: Primary Impression: PCP (phencyclidine) abuse Disposition: 01 HOME, SELF-CARE Condition: STABLE Referrals: NO PCP (PCP) Patient Instructions: Alcohol and Drug Addiction, Finding Treatment, Drug Abuse , FAQs ERICA RICHEY DO May 03, 2018 22:58
[2018-05-03 23:01] VITALS: BP 169/87
--- NOTE | 2018-05-04 06:49 | EKG ---
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
== END 2018-05-03 23:01 | disposition home or self-care (01) ==
LOC: ER 21:17
DX: F16.20 Hallucinogen dependence, uncomplicated (principal); I10 Essential (primary) hypertension; R94.31 Abnormal electrocardiogram [ECG] [EKG]
CPT/HCPCS: 36415; 80053; 80307; 81001; 83735; 85025; 85610; 85730; 93005; 99284; G0480

== ENCOUNTER 2018-05-28 23:16 | Emergency (ER) | payer SELFPAY ==
[~2018-05-28] VITALS: Ht 160 cm; Wt 74.8 kg
--- NOTE | 2018-05-28 23:27 | PHYS DOC ---
Past Medical History Past Medical History: Hypertension, Other Additional Past Medical Histor: DRUG ABUSE/PCP Past Surgical History: Other Additional Past Surgical Histo: "broken jaw surgery" Alcohol Use: Occasionally Drug Use: Marijuana, Phencyclidine Adult General Chief Complaint Chief Complaint: DRUG ABUSE [facility] HPI Patient is a 43 year old who was brought here for evaluation because he was found wandering in the neighborhood, knocking on people's door. Patient admitted of using PCP tonight. He wanted to be released upon arrival here. Patient denied suicidal ideation or homicidal ideation. However, he appeared confused and agitated. He has been evaluated here recently for the same problem. Patient denied any headache, no chest pain, no abdominal pain. NO nausea or vomiting. Review of Systems Review of Systems Constitutional: Denies fever or chills [] Eyes: Denies change in visual acuity, redness, or eye pain [] HENT: Denies nasal congestion or sore throat [] Respiratory: Denies cough or shortness of breath [] Cardiovascular: No additional information not addressed in HPI [] GI: Denies abdominal pain, nausea, vomiting, bloody stools or diarrhea [] : Denies dysuria or hematuria [] Musculoskeletal: Denies back pain or joint pain [] Integument: Denies rash or skin lesions [] Neurologic: Denies headache, focal weakness or sensory changes [] Endocrine: Denies polyuria or polydipsia PSYCH: DENIED SUICIDAL IDEATION OR HOMICIDAL IDEATION. All other systems were reviewed and found to be within normal limits, except as documented in this note. Current Medications Current Medications Current Medications Medications (Trade) Dose Ordered Sig/Nick Start Time Stop Time Status Last Admin Dose Admin Lorazepam (Ativan) 2 mg 1X ONCE 05/28/18 23:45 05/28/18 23:46 DC 05/28/18 23:29 2 MG Ziprasidone (Geodon Im) 20 mg 1X ONCE 05/28/18 23:45 05/28/18 23:46 DC 05/28/18 23:29 20 MG Allergies Allergies Allergies Coded Allergies Type Severity Reaction Last Updated Verified No Known Drug Allergies 04/03/13 No Physical Exam Physical Exam Constitutional: Well developed, well nourished, no acute distress, non-toxic appearance. [] HENT: Normocephalic, atraumatic, bilateral external ears normal, oropharynx moist, no oral exudates, nose normal. [] Eyes: PERRLA, EOMI, conjunctiva normal, no discharge. [] Neck: Normal range of motion, no tenderness, supple, no stridor. [] Cardiovascular: SINUS TACHYCARDIA, regular rhythm, no murmur [] Lungs & Thorax: Bilateral breath sounds clear to auscultation [] Abdomen: Bowel sounds normal, soft, no tenderness, no masses, no pulsatile masses. [] Skin: Warm, dry, no erythema, no rash. [] Back: No tenderness, no CVA tenderness. [] Extremities: No tenderness, no cyanosis, no clubbing, ROM intact, no edema. [] Neurologic: Alert and AWAKE, BUT CONFUSED, DISORIENTED TO TIME AND PERSON, ORIENTED TO PLACE, normal motor function, normal sensory function, no focal deficits noted. [] Psychologic: APPEARED CONFUSED, AGITATED, NOT COOPERATIVE BUT DENIED SUICIDAL IDEATION OR HOMICIDAL IDEATION. Current Patient Data Vital Signs Vital Signs Date Time Temp Pulse Resp B/P (MAP) Pulse Ox O2 Delivery O2 Flow Rate FiO2 05/29/18 03:00 91 20 144/79 (100) 91 Room Air 05/28/18 23:30 98.6 98.6 EKG EKG [] Radiology/Procedures Radiology/Procedures [] Course & Med Decision Making Course & Med Decision Making Pertinent Labs and Imaging studies reviewed. (See chart for details) Patient was agitated and not cooperative upon arrival. He was required soft four point restrain. He was given 20 mg Geodon IM and 2 mg Ativan IM. He has been sleeping since. 4 POINTS RESTRAIN WAS REMOVED. PATIENT WOKE UP AT 3:15 AM, DENIED SI OR HI. WILL DISCHARGE HIM HOME Dragon Disclaimer Dragon Disclaimer This electronic medical record was generated, in whole or in part, using a voice recognition dictation system. Departure Departure Impression: Primary Impression: Substance abuse Disposition: 01 HOME, SELF-CARE Condition: STABLE Referrals: NO PCP (PCP) follow up with your doctor as needed next week Patient Instructions: Substance Abuse-Brief JETT CAO DO May 28, 2018 23:27
[2018-05-28] MEDS ORDERED: ZIPRASIDONE IM 20 MG VIAL. IM ONE (23:45)
[2018-05-29 04:00] VITALS: BP 136/72
== END 2018-05-29 04:30 | disposition home or self-care (01) ==
LOC: ER 23:16
DX: F16.20 Hallucinogen dependence, uncomplicated (principal); R41.0 Disorientation, unspecified; R45.1 Restlessness and agitation; R00.0 Tachycardia, unspecified; I10 Essential (primary) hypertension
CPT/HCPCS: 96372; 99283; J2060; J3486

== ENCOUNTER 2018-06-07 22:03 | Emergency (ER) | payer SELFPAY ==
[~2018-06-07] VITALS: Ht 182.9 cm; Wt 76.7 kg
--- NOTE | 2018-06-07 22:19 | PHYS DOC ---
Past Medical History Past Medical History: Unknown Additional Past Medical Histor: Patient unable to provide hx at this point Past Surgical History: Other Additional Past Surgical Histo: "broken jaw surgery" Alcohol Use: Occasionally Drug Use: Phencyclidine Adult General Chief Complaint Chief Complaint: ALTERED MENTAL STATUS HPI HPI 43-year-old male is well known to us from PCP use presents secondary to PCP intoxication. He was found agitated at her convenience store and brought here for further evaluation. Patient is unwilling or unable to provide any meaningful history. EMS states that they have seen him like this many times.[] Review of Systems Review of Systems Review of systems is unobtainable secondary to intoxication altered mental status. Allergies Allergies Allergies Coded Allergies Type Severity Reaction Last Updated Verified No Known Drug Allergies 04/03/13 No Physical Exam Physical Exam Constitutional: Agitated. [] HENT: Normocephalic, atraumatic, bilateral external ears normal, oropharynx moist, no oral exudates, nose normal. [] Eyes: Pupils dilated and sluggish. [] Neck: Normal range of motion, no tenderness, supple, no stridor. [] Cardiovascular: Tachycardic no murmur[] Lungs & Thorax: Bilateral breath sounds clear to auscultation [] Abdomen: Bowel sounds normal, soft, no tenderness, no masses, no pulsatile masses. [] Skin: Warm, diaphoretic. [] Back: No tenderness, no CVA tenderness. [] Extremities: No tenderness, no cyanosis, no clubbing, ROM intact, no edema. [] Neurologic: Moves all 4 extremities[] Psychologic: Highly agitated. [] Current Patient Data Vital Signs Vital Signs Date Time Temp Pulse Resp B/P (MAP) Pulse Ox O2 Delivery O2 Flow Rate FiO2 06/07/18 23:40 116 20 06/07/18 22:13 98 06/07/18 22:03 98.6 210/110 (143) Room Air 98.6 EKG EKG [] Radiology/Procedures Radiology/Procedures [] Course & Med Decision Making Course & Med Decision Making Pertinent Labs and Imaging studies reviewed. (See chart for details) [ED course: Evaluation reveals an agitated 43-year-old male who is likely been using PCP. On arrival to the emergency Department he was given 20 mg of Geodon IM which did help calm him down. The patient will be observed for a few hours.] After resting quietly in the emergency department for a couple of hours the patient woke up was appropriately interactive alert and oriented with a steady gait. Patient wanted to leave on his own recognizance I believe this is appropriate. Dragon Disclaimer Dragon Disclaimer This electronic medical record was generated, in whole or in part, using a voice recognition dictation system. Departure Departure Impression: Primary Impression: Drug abuse Additional Impression: PCP (phencyclidine) abuse Disposition: HOME, SELF-CARE Condition: IMPROVED Referrals: NO PCP (PCP) Patient Instructions: Substance Abuse-Brief Additional Instructions: Return to the emergency department with any new or concerning symptoms Problem Qualifiers AIDEE WALKER DO Jun 07, 2018 22:19
[2018-06-08 00:08] VITALS: BP 186/102
== END 2018-06-08 00:21 | disposition home or self-care (01) ==
LOC: ER 22:03
DX: F16.229 Hallucinogen dependence with intoxication, unspecified (principal); R45.1 Restlessness and agitation; R00.0 Tachycardia, unspecified
CPT/HCPCS: 99283

== ENCOUNTER 2018-10-26 22:20 | Emergency (ER) | payer SELFPAY ==
[~2018-10-26] VITALS: Ht 177.8 cm; Wt 76.7 kg
[2018-10-26 23:00] VITALS: BP 126/104
--- NOTE | 2018-10-26 23:35 | PHYS DOC ---
Past Medical History Past Medical History: No Pertinent History Additional Past Medical Histor: Patient unable to provide hx at this point Past Surgical History: Other Additional Past Surgical Histo: "broken jaw surgery" Alcohol Use: Occasionally Drug Use: Phencyclidine Adult General Chief Complaint Chief Complaint: ALTERED MENTAL STATUS [facility] HPI Patient is a 43-year-old male who presents via EMS with report of having smoked wet earlier this evening. Patient had been caught trying to enter into another person's home due to reportedly being confused and thinking he was at his own home. EMS reports that initially patient had been disoriented when they had picked him up but was answering questions appropriately by the time he arrived to the emergency room. At this time, patient denies any complaints, is alert and oriented �3, and is requesting discharge home. Patient does not desire any workup at this time.[] Review of Systems Review of Systems Constitutional: Denies fever or chills [] Respiratory: Denies cough or shortness of breath [] Cardiovascular: No additional information not addressed in HPI [] GI: Denies abdominal pain, nausea, vomiting, bloody stools or diarrhea [] Integument: Denies rash or skin lesions [] Neurologic: Denies headache, focal weakness or sensory changes [] All other systems were reviewed and found to be within normal limits, except as documented in this note. Allergies Allergies Allergies Coded Allergies Type Severity Reaction Last Updated Verified No Known Drug Allergies 04/03/13 No Physical Exam Physical Exam Constitutional: Well developed, well nourished, no acute distress, non-toxic appearance. [] HENT: Normocephalic, atraumatic, bilateral external ears normal, oropharynx moist, no oral exudates, nose normal. [] Eyes: PERRLA, EOMI, conjunctiva normal, no discharge. [] Neck: Normal range of motion, no tenderness, supple, no stridor. [] Cardiovascular:Heart rate regular rhythm, no murmur [] Lungs & Thorax: Bilateral breath sounds clear to auscultation [] Abdomen: Bowel sounds normal, soft, no tenderness. [] Skin: Warm, dry, no erythema, no rash. [] Extremities: No tenderness, no cyanosis, no clubbing, ROM intact, no edema. [] Neurologic: Alert and oriented X 3, no focal deficits noted. [] Current Patient Data Vital Signs Vital Signs Date Time Temp Pulse Resp B/P (MAP) Pulse Ox O2 Delivery O2 Flow Rate FiO2 10/26/18 23:00 112 22 97 10/26/18 22:24 99.6 147/93 (111) Room Air 99.6 EKG EKG [] Radiology/Procedures Radiology/Procedures [] Course & Med Decision Making Course & Med Decision Making Pertinent Labs and Imaging studies reviewed. (See chart for details) [] Dragon Disclaimer Dragon Disclaimer This electronic medical record was generated, in whole or in part, using a voice recognition dictation system. Departure Departure Impression: Primary Impression: Drug abuse Disposition: 01 HOME, SELF-CARE Condition: STABLE Referrals: NO PCP (PCP) Patient Instructions: Drug Abuse, FAQs BILLY VÁZQUEZ Jr. DO Oct 26, 2018 23:35
== END 2018-10-26 23:45 | disposition home or self-care (01) ==
LOC: ER 22:20
DX: F19.10 Other psychoactive substance abuse, uncomplicated (principal); R41.0 Disorientation, unspecified
CPT/HCPCS: 99283

== ENCOUNTER 2021-01-25 23:28 | Emergency (ER) | payer SELFPAY ==
[~2021-01-25] VITALS: Ht 170.2 cm; Wt 90.0 kg
[2021-01-26] MEDS ORDERED: ZIPRASIDONE IM 20 MG VIAL. IM ONE ×2 (00:15→00:45)
--- NOTE | 2021-01-26 00:22 | PHYS DOC ---
Past Medical History Past Medical History: No Pertinent History Additional Past Medical Histor: Patient unable to provide hx at this point Past Surgical History: Other Additional Past Surgical Histo: "broken jaw surgery" Smoking Status: Unknown if ever smoked Alcohol Use: Occasionally Drug Use: Phencyclidine General Adult EDM: Chief Complaint: DRUG ABUSE HPI: HPI: 45-year-old male presents for evaluation via EMS due to altered mental status. Patient was found to be trying to get into a hotel room that was not his own. On arrival patient is alert but very repetitive. Patient answers all questions appropriately but repetitively states he is "GOOD". Patient has no signs of trauma. He admits to smoking PCP. Review of Systems: Review of Systems: Limited due to intoxication Heart Score: C/O Chest Pain: N/A Risk Factors: Risk Factors: DM, Current or recent (<one month) smoker, HTN, HLP, family history of CAD, obesity. Risk Scores: Score 0 - 3: 2.5% MACE over next 6 weeks - Discharge Home Score 4 - 6: 20.3% MACE over next 6 weeks - Admit for Clinical Observation Score 7 - 10: 72.7% MACE over next 6 weeks - Early Invasive Strategies Current Medications: Current Medications Medications (Trade) Dose Ordered Sig/Nick Start Time Stop Time Status Last Admin Dose Admin Ziprasidone (Geodon Im) 10 mg 1X ONCE 01/26/21 00:15 01/26/21 00:16 DC Allergies: Allergies: Allergies Coded Allergies Type Severity Reaction Last Updated Verified No Known Drug Allergies 04/03/13 No Physical Exam: PE: General: alert, no acute distress. Skin: warm, dry and intact, no erythema, no rash. HENT: bilateral external ears normal, oropharynx moist, nose normal. Head:: Normocephalic, atraumatic. Neck: Trachea midline. Eyes: EOMI, Normal conjunctiva, No drainage CARDIOVASCULAR: Regular rate and rhythm RESPIRATORY: No respiratory distress Back: Full range of motion. MUSCULOSKELETAL: Full range of motion of bilateral upper and lower extremities. GASTROINTESTINAL: Abdomen soft without rebound or guarding. NEUROLOGICAL: Alert and noted to person, place and time. No neurological deficits observed Psychiatric: Abnormal judgment, under the influence Current Patient Data: Vital Signs: Vital Signs Date Time Temp Pulse Resp B/P (MAP) Pulse Ox O2 Delivery O2 Flow Rate FiO2 11/28/21 23:41 98.0 106 18 143/80 (101) 98 Room Air 98.0 EKG: EKG: [] Radiology/Procedures: Radiology/Procedures: [] Course & Med Decision Making: Course & Med Decision Making Pertinent Labs and Imaging studies reviewed. (See chart for details) []Patient was observed to sobriety. Patient required chemical and physical restraints. Patient uncooperative and trying to leave before sobriety. Treated with geodon. Patient eventually feel asleep. Physical restrains removed. Patient was allowed to sleep to sober up. 0400hrs- Patient clinically sober and discharged home. Dragon Disclaimer: Juliane Disclaimer: This electronic medical record was generated, in whole or in part, using a voice recognition dictation system. Departure Departure Impression: Primary Impression: Drug abuse Additional Impression: Substance abuse Disposition: 01 HOME / SELF CARE / HOMELESS Condition: STABLE Referrals: NO PCP (PCP) Patient Instructions: Drug Abuse, FAQs, Substance Abuse-Brief SOFIA MAJANO I DO Jan 26, 2021 00:22
[2021-01-26 03:30] VITALS: BP 158/91
== END 2021-01-26 04:06 | disposition home or self-care (01) ==
LOC: ER 23:28
DX: R41.82 Altered mental status, unspecified (principal); F16.10 Hallucinogen abuse, uncomplicated
CPT/HCPCS: 96372; 99285; J3486

== ENCOUNTER 2021-05-09 01:25 | Observation (INO) | payer SELFPAY ==
[~2021-05-09] VITALS: Ht 170.2 cm; Wt 79.0 kg
[2021-05-09 01:50] LABS: BASO # 0.1 x10^3/uL (0.0-0.2); BASO % 1 % (0-3); EOS % 0 % (0-3); HEMATOCRIT 40.3 % (39.0-53.0); HEMOGLOBIN 13.7 g/dL (13.0-17.5); LYMPH # 1.1 x10^3/uL (1.0-4.8); LYMPH % 15 % (24-48); MEAN CORPUSCULAR HEMOGLOBIN 30 pg (25-35); MEAN CORPUSCULAR HGB CONC 34 g/dL (31-37); MEAN CORPUSCULAR VOLUME 90 fL (79-100); MONO # 0.4 x10^3/uL (0.0-1.1); MONO % 5 % (0-9); NEUT # 6.1 x10^3/uL (1.8-7.7); NEUT % 79 % (31-73); PLATELET COUNT 353 x10^3/uL (140-400); RED CELL DISTRIBUTION WIDTH 12.9 % (11.5-14.5); WHITE BLOOD COUNT 7.7 x10^3/uL (4.0-11.0)
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
[2021-05-09 02:00] LABS: CALCIUM 9.6 mg/dL (8.5-10.1); CREATININE 1.4 mg/dL (0.7-1.3); GFR 66.6; POTASSIUM 4.5 mmol/L (3.5-5.1)
[2021-05-09 02:06] LABS: ALBUMIN 4.3 g/dL (3.4-5.0); ALBUMIN/GLOBULIN RATIO 0.9 (1.0-1.7); MAGNESIUM 2.1 mg/dL (1.8-2.4); TOTAL BILIRUBIN 0.3 mg/dL (0.2-1.0); TOTAL PROTEIN 8.9 g/dL (6.4-8.2)
[2021-05-09] MEDS ORDERED: IV NORMAL SALINE 1000ML BAG 1,000 ML IV ONE ×4 (02:30→06:30)
--- NOTE | 2021-05-09 02:34 | EKG ---
[facility] [address] [place] [address] Test Date: 2021-05-09 Test Time: 01:47:03 Pat Name: LIYAH CASTRO Department: Room: Gender: M Digital Content Coordinator: : 1975 Requested By: ROSALINDA COLES Order Number: [id number] Reading MD: Richard Pineda Measurements Intervals Mchenry Rate: 107 P: 40 CA: 138 QRS: 10 QRSD: 86 T: 8 QT: 332 QTc: 449 Interpretive Statements SINUS TACHYCARDIA LEFT ATRIAL ABNORMALITY Electronically Signed On 05-09-2021 18:28:48 THREADER by Richard Pineda
[2021-05-09 05:16] LABS: CREATINE KINASE 713 U/L (39-308); MYOGLOBIN 585 ng/mL (16-96)
[2021-05-09 06:23] LABS: BARBITURATES NEG (NEG); BENZODIAZEPINES NEG (NEG); CANNABINOIDS NEG (NEG); COCAINE NEG (NEG); METHADONE NEG (NEG); OPIATES NEG (NEG); PHENCYCLIDINE POS (NEG)
[2021-05-09 06:24] LABS: AMPHETAMINE/METHAMPHETAMINE NEG (NEG)
[2021-05-09] MEDS ORDERED: ACETAMINOPHEN 325 MG TABLET. PO PRN (06:30)
[2021-05-09] MEDS ORDERED: ONDANSETRON PF 4 MG/2 ML VIAL. IVP PRN (06:30)
[2021-05-09 06:51] LABS: BILIRUBIN,URINE NEGATIVE (NEG); CLARITY,URINE CLEAR; COLOR,URINE YELLOW; NITRITE,URINE NEGATIVE (NEG); PROTEIN,URINE NEGATIVE (NEG-TRACE); UROBILINOGEN,URINE 0.2 mg/dL (0.2 mg/dL)
[2021-05-09 06:53] LABS: HYALINE CASTS, URINE FEW /HPF
[2021-05-09 06:54] LABS: BACTERIA,URINE 0 /HPF (0-FEW); RBC,URINE 0 /HPF (0-2); WBC,URINE OCC /HPF (0-4)
[2021-05-09 07:18] VITALS: BP 142/78
[2021-05-09 08:06] VITALS: BP 160/75
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
[2021-05-09] MEDS ORDERED: IV NORMAL SALINE 1000ML BAG 1,000 ML IV SCH (08:45)
== END 2021-05-09 09:17 | disposition left against medical advice (07) ==
LOC: ER 01:25 → ED HOLD 05:30
PROVIDERS: ADMIT Internal Medicine; ATTEND Internal Medicine
DX: F16.10 Hallucinogen abuse, uncomplicated (principal); M62.82 Rhabdomyolysis; I10 Essential (primary) hypertension; G92.9 Unspecified toxic encephalopathy; Z78.1 Physical restraint status; Z79.899 Other long term (current) drug therapy; Z98.890 Other specified postprocedural states
CPT/HCPCS: 36415; 80053; 80307; 81001; 82550; 83605; 83735; 83874; 83880; 84100; 84484; 85025; 93005; 96361; 96374; 96375; 99284; G0378; G0480; J2060; J7030; G0379